=== PATIENT | male | born 1960 | race American Indian/Alaskan Native ===

== ENCOUNTER 2020-12-25 10:55 | Outpatient (CLI) | payer OTHER ==
--- NOTE | 2020-12-25 11:57 | XRay Report ---
LEFT SHOULDER 3 VIEWS INDICATION: LEFT SHOULDER PAIN. COMPARISON: None. IMPRESSION: No acute osseous abnormality or bone lesion. 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 There is normal articulation at the glenohumeral joint. The soft tissues are unremarkabl e. Signer Name: Demetrius Jeffery Jr, MD Signed: 12/25/2020 11:53 AM Workstation Name: [id number]
== END 2020-12-25 10:56 | disposition home or self-care (01) ==
LOC: XRAY 10:55
PROVIDERS: ATTEND Internal Medicine
DX: M19.012 Primary osteoarthritis, left shoulder (principal)